=== PATIENT | female | born 1955 | race Caucasian/White ===

== ENCOUNTER 2016-07-21 06:52 | Day surgery (SDC) | payer OTHER ==
[~2016-07-21] VITALS: Ht 154.9 cm; Wt 74.7 kg
[2016-07-21] VITALS (9 sets, daily range): BP systolic 155–183; BP diastolic 61–80
[~2016-07-21 06:52] MED LIST: AMITRIPTYLINE H10 MG PO; CITALOPRAM HYDR40 MG PO; IRON325 MG PO; NORTRIPTYLINE H10 MG PO; OMEPRAZOLE20 M1 PO; TRAZODONE HCL50 MG PO; [UNRECOGNIZED DRUG - OTHER] PO
--- NOTE | 2016-07-21 10:05 | Operative Report ---
Operative Report Date of Surgery: 07/21/16 Preoperate Diagnosis: gastroesophageal reflux Postoperative Diagnosis: gastroesophageal reflux Surgeon: Andres Chen MD Metal Extrusion Supervisor Surgeon: Holden Arryoo MD Procedure Performed: Laparoscopic closure of hiatal hernia and Toupet procedure Anesthesia: General endotracheal Indications: 61-year-old female with classic symptoms of volume reflux. DeMeester score of 91. FINDINGS: Small hiatal hernia. Surgical Technique: Patient brought to the operating room. Patient placed in the supine position. Patient underwent general endotracheal anesthesia. After proper anesthesia had taken effect, the patient was placed in low lithotomy position. The patient's abdomen was prepped and draped in a sterile fashion. A supraumbilical incision was made. A varies needle was inerted through this site into the abdominal cavity. After ascertaining its appropriate position with suction irrigation, a pneumoperitoneum was obtained using CO2 insufflation to approximately 14-15 mmHg pressure. The varies needle was removed and replaced with a 10 mm trocar. The trocar was removed. The laparoscopic video camera was introduced into the abdominal cavity. Under direct visualization a self-retaining liver retractor was introduced in the abdominal cavity through a small epigastric incision. The liver retractor was placed beneath the left lobe of the liver and retracted cephalad. Under direct visualization a 10 mm trocar was placed in the left mid abdomen. Two 10 mm trochars were placed in the subxiphoid region approximate 1 handbreadth apart. Each entered the abdominal cavity under direct visualization. Trochars removed leaving the C-spine through which instrumentation was introduced into the abdominal cavity. The ThunderBeat was introduced into the abdominal cavity and the upper portion of the hepatogastric ligament was taken down. The phrenoesophageal ligament was taken down as well and we were able to thus circumferentially isolating the esophagus. The right bundle and left bundle of the right crura were identified. The short gastrics were taken down using the ThunderBeat under direct visualization. The right and left apex of the right crura was approximated using O Surgidac Endo Stitch interrupted suture using the extracorporeal knot tying technique. The fundus of the stomach was brought posteriorly to the esophagus secured with a single stitch to the right crura using O Surgidac Endo Stitch interrupted suture with the extracorporeal knot tying technique. The right portion of the gastric fundus was then sutured to the right lateral border of the esophagus using O Surgidac Endo Stitch with extracorporeal knot tying technique. This was repeated once again just inferior to our first stitch. This technique was then repeated on the opposite side, suturing the left portion of the fundus of the stomach to the left border of the esophagus creating our Toupet 180 degree wrap. The pneumoperitoneum was released. All trochars removed and the abdominal cavity. All trocar sites approximated using 4-0 subdermal Polysorb. Patient tolerated procedure well. There were no intraoperative anesthetic consultations. Patient was extubated and transferred to the recovery room in stable condition. COMPLICATIONS: None CONDITION: Stable to postop anesthesia recovery room ESTIMATED BLOOD LOSS: None FLUIDS: 600 cc lactated Ringer's DRAINS: None SPECIMENS: None
[2016-07-22 00:57] VITALS: BP 160/68
[2016-07-22 03:09] VITALS: BP 150/65
--- NOTE | 2016-07-22 06:25 | Progress Note ---
Subjective General Patient awake alert and oriented. Comfortable. Tolerating by mouth. Ambulatory. No dysphasia. No reflux. Physical Exam Vital Signs / I&Os Vital Signs Date Time Temp Pulse Resp B/P Pulse O2 O2 Flow FiO2 Ox Delivery Rate 07/22 0309 98.6 92 18 150/65 97 Room Air / 0057 98.6 92 18 160/68 96 Room Air 05/ 1800 98.1 92 17 164/66 97 Room Air 05/ 1624 77 16 168/74 97 Room Air 05/ 1554 Room Air 05/ 1440 97.9 83 16 172/61 99 Room Air 05/ 1338 82 20 158/67 97 Room Air 05/01 1302 87 20 168/70 99 Nasal 2.0 Cannula 05/01 1225 76 18 174/77 97 Nasal 2.0 Cannula 05/01 1216 2.0 05/01 1215 2.0 05/01 1209 74 18 155/61 94 Nasal 2.0 Cannula 05/01 1145 80 17 183/73 95 Nasal Cannula 05/01 1135 97.9 76 17 180/80 95 Nasal 2.0 Cannula 05/01 1127 97.5 78 16 180/80 98 Nasal 3.0 Cannula 05/01 1120 75 9 185/77 98 Nasal 3.0 Cannula 05/01 1110 76 14 184/74 98 Nasal 3.0 Cannula 05/01 1105 76 13 191/75 98 Nasal 3.0 Cannula 05/01 1100 77 13 180/81 99 Nasal 3.0 Cannula 05/01 1055 77 12 184/80 97 Nasal 3.0 Cannula 05/01 1050 76 15 187/81 94 Nasal 3.0 Cannula 05/01 1045 77 19 189/80 98 Nasal 3.0 Cannula 05/01 1040 76 14 194/80 96 Nasal 3.0 Cannula 05/01 1035 76 15 200/79 96 Nasal 3.0 Cannula 05/01 1030 68 12 186/72 98 Nasal 3.0 Cannula 05/01 1025 67 12 177/73 98 Nasal 3.0 Cannula 05/01 1020 72 15 195/91 99 Nasal 3.0 Cannula 05/01 1015 72 15 196/90 100 Nasal 3.0 Cannula 05/01 1010 70 15 196/90 100 Nasal 3.0 Cannula 05/01 1005 72 14 202/91 100 Nasal 3.0 Cannula 05/01 1000 69 14 204/90 100 Nasal 3.0 Cannula 07/21 0955 69 14 206/89 100 Nasal 9.0 Cannula 07/21 0950 74 18 193/89 100 Mask 9.0 07/21 0945 74 18 181/72 100 Nasal 3.0 Cannula 07/21 0941 97.9 100 19 184/71 93 07/21 0708 96.8 58 16 109/41 97 I&O 07/21 0800 07/21 1600 07/22 0000 Intake Total 585 716 9060 Output Total 220 1000 Balance 850 -70 172 General Appearance Oriented X3, Cooperative, No acute distress Lungs Clear to auscultation Cardiovascular Regular rate and rhythm Abdomen Normal bowel sounds, all trocar sites are dry. Dressings intact Skin skin is warm and dry no peripheral cyanosis Neurological No lateralizing signs Psych/Mental Status Mood normal Assessment and Plan Problem List 1. GASTROESOPHAGEAL REFLUX Plan Gastroesophageal reflux resolved. 2. STATUS POST LAPAROSCOPIC TOUPET PROCEDURE Plan Postop day 1 laparoscopic Toupet procedure. Patient stable and ready for discharge
[2016-07-22] MEDS ORDERED: HYCET1 ML PO (06:27)
--- NOTE | 2016-07-22 06:28 | Provider's Discharge Care Plan ---
Problem, Goal, Plan Problem List 1. STATUS POST LAPAROSCOPIC TOUPET PROCEDURE Goals: Improve disease control, Improve function, Therapeutic intervention Instructions: Follow up as directed, Take meds as directed, full liquid diet
[2016-07-22 07:05] VITALS: BP 155/57
== END 2016-07-22 10:05 | disposition home or self-care (01) ==
LOC: OR SRH 06:52 → SCU SRH 06:53 → OR SRH 07:30 → ACUTE2 SRH 11:54 → OR SRH 07-22 10:05
PROVIDERS: Specialist
PROC: 0DV44ZZ Restriction of Esophagogastric Junction, Percutaneous Endoscopic Approach (ICD-10-PCS; principal; 2016-07-21 07:30)
DX: K21.9 Gastro-esophageal reflux disease without esophagitis (principal); K44.9 Diaphragmatic hernia without obstruction or gangrene

== ENCOUNTER 2016-08-21 10:34 | Outpatient (CLI) | payer OTHER ==
[~2016-08-21 10:34] MED LIST changes: +HYCET1 ML PO
--- NOTE | 2016-08-21 12:14 | DIAGNOSTIC IMAGING REPORT ---
PROCEDURE: XR BARIUM SWALLOW INDICATION: MID BACK PAIN W/EATING , history of recent Lap Yoni 4 weeks ago TECHNIQUE: Real time fluoroscopy was performed on the esophagus. Total fluoro time 2.5 minutes. Cumulative dose 2356 mGy. 117 saved fluoroscopic images including cine imaging and last image hold screen capture images. COMPARISON: 01/07/2016 FINDINGS: The swallowing mechanism is normal without aspiration. The esophagus is normal in course, contour, and caliber. No hiatal hernia. There is subdiaphragmatic proximal gastric morphology of Yoni fundoplication. The gastroesophageal junction is at the level of the diaphragm. The smallest luminal diameter with maximal distention measures approximately 4 x 5 mm. No evidence of spontaneous or inducible gastroesophageal reflux. Lack of secondary stripping wave as seen previously. IMPRESSION: 1. Morphology of Yoni fundoplication in appropriate position. 2. GE junction diameter as described. 3. No evidence of reflux.
== END 2016-08-21 23:00 | disposition home or self-care (01) ==
LOC: XR SRH 10:34
DX: M54.9 Dorsalgia, unspecified (principal); Z98.890 Other specified postprocedural states

== ENCOUNTER 2016-09-22 08:44 | Day surgery (SDC) | payer OTHER ==
[~2016-09-22] VITALS: Ht 154.9 cm; Wt 63.5 kg
[2016-09-22] MEDS ORDERED: CITALOPRAM HYDR20 MG PO (09:10)
--- NOTE | 2016-09-22 09:21 | NUR ---
PATIENT ASSESSMENT AND MED/ALLERGY REVIEW COMPLETE. VITALS STABLE. CONSENT SIGNED BY PATIENT AND WITNESSED BY RN. IV STARTED IN R HAND WITH 1 ATTEMPT. LR INFUSING ON PUMP. PREOP INSTRUCTIONS DISCUSSED. QUESTIONS ENCOURAGED AND ANSWERED BY RN. WILL CONTINUE TO MONITOR.
[2016-09-22] MEDS ORDERED: HYCET1 ML PO (11:22)
--- NOTE | 2016-09-22 11:23 | Provider's Discharge Care Plan ---
Problem, Goal, Plan Problem List 1. STATUS POST EGD WITH SAVORY DILATION OF THE ESOPHAGUS TO 18 MM Goals: Screening, Therapeutic intervention Instructions: Follow up as directed, Take meds as directed
--- NOTE | 2016-09-22 11:32 | Operative Report ---
Operative Report Date of Surgery: 09/22/16 Preoperate Diagnosis: Odynophagia Postoperative Diagnosis: normal EGD with dilation to 18 mm Surgeon: Andres Chen MD Fleet Administrative Assistant Surgeon: none Procedure Performed: EGD with savory dilation and 18 mm under fluoroscopy Anesthesia: Gen. endotracheal Indications: 61-year-old female status post laparoscopic Toupet procedure. Complains of postprandial odynophagia. Barium swallow unremarkable. FINDINGS: Well appearing duodenum and duodenal bulb. The gastric mucosal pattern appeared grossly normal. On retroflex view, the fundic wrap appeared grossly normal and intact. EG junction was approximately 40 cm from the incisors. There is no gross evidence of obstruction or stenosis. The remaining esophagus appeared grossly normal and well. Surgical Technique: Patient brought to the operating room placed in the left lateral decubitus position. Patient was administered total intravenous anesthesia.. Once anesthesia had taken affect, the posterior pharynx was sprayed using Cetacaine spray. An Olympus fiberoptic video upper GI endoscope was passed in to the patient's posterior pharynx. The esophagus intubated under direct visualization. The scope passed easily down the esophagus through the EG junction which was located approximately at 40 cm from the dental incisors. The scope passed easily through the EG junction into the gastric lumen and eventually into the second third portion of duodenum. On withdrawing the scope, the afore mentioned findings were noted. The scope was withdrawn into the gastric lumen and retroflexed. Good view of the cardia, fundus, EG junction from below, and greater and lesser curvature. Through the biopsy channel. A floppy tip guidewire was passed under fluoroscopy into the gastric lumen. The endoscope was withdrawn leaving the wire in place. Over the wire a 17 mm savory dilator was passed under fluoroscopic guidance across the EG junction. The dilator was left in position for 3 min. The dilator was withdrawn leaving the wire in place. An 18 mm savory dilator was then passed under fluoroscopic guidance across the EG junction, again leaving it in place for 3 min.. The wire and the savory dilator was withdrawn. Decided not to pass any further dilators rather brisk injury to the fundic wrap. The scope was once again passed down the posterior pharynx across the EG junction and into the gastric lumen, where it was retroflexed, and the wrap was noted to be intact. This was withdrawn across the EG junction which appeared to be grossly intact as well. The scope was then completely withdrawn. Patient tolerated procedure well. Patient was transferred to the recovery room in stable condition. There were no intraoperative or anesthetic complications.
--- NOTE | 2016-09-22 11:45 | DIAGNOSTIC IMAGING REPORT ---
PROCEDURE: XR FLUORO ENDOSCOPE DILATION INDICATION: DYSPHAGIA TECHNIQUE: C-arm fluoroscopy provided to Dr. Chen. Fluoroscopy time 1 minute 20 seconds. 14.9 mGy). COMPARISON: None. FINDINGS: AP view. There is a balloon catheter projecting over the left upper quadrant. IMPRESSION: 1. C-arm fluoroscopy provided for Dr. Chen.
[2016-09-22 13:16] VITALS: BP 171/93
--- NOTE | 2016-09-22 14:09 | NUR ---
PATIENT ARRIVED BACK FROM OR WITH STABLE VITALS. TOLERATING CLEAR LIQUIDS WITH NO DIFFICULTY. DISCHARGED FROM SCU AT 1400. IV DISCONTINUED. DISCHARGE INSTRUCTIONS DISCUSSED, INCLUDING SIGNS/SYMPTOMS TO REPORT. QUESTIONS ENCOURAGED AND ANSWERED BY RN. PATIENT DEPARTED AT 1400.
== END 2016-09-22 14:00 | disposition home or self-care (01) ==
LOC: OR SRH 08:44
PROVIDERS: Specialist
PROC: 0D748ZZ Dilation of Esophagogastric Junction, Via Natural or Artificial Opening Endoscopic (ICD-10-PCS; principal; 2016-09-22 10:30)
DX: R13.19 Other dysphagia (principal); Z98.890 Other specified postprocedural states
CPT/HCPCS: 29229; 50004; 60001; 70002; 80102; 83526